=== PATIENT | female | born 1940 | race Caucasian/White ===

== ENCOUNTER → 2019-07-07 14:29 | Outpatient (BNVA) | payer MEDICARE, SELFPAY | PROVIDERS: Family Provider Family Medicine; PCP Physician Assistant Medical; Visit Provider Anesthesiology | DX: G89.29 Other chronic pain (principal); M47.816 Spondylosis without myelopathy or radiculopathy, lumbar region; M48.061 Spinal stenosis, lumbar region without neurogenic claudication; M51.37 Other intervertebral disc degeneration, lumbosacral region; M51.9 Unspecified thoracic, thoracolumbar and lumbosacral intervertebral disc disorder; M51.24 Other intervertebral disc displacement, thoracic region; M25.78 Osteophyte, vertebrae; Z79.891 Long term (current) use of opiate analgesic | CPT/HCPCS: 99214 ==

== ENCOUNTER → 2019-11-11 14:32 | Outpatient (BNVA) | payer MEDICARE, SELFPAY | PROVIDERS: Family Provider Family Medicine; PCP Physician Assistant Medical; Visit Provider Nurse Practitioner | DX: G89.29 Other chronic pain (principal); M54.5 Low back pain; Z79.891 Long term (current) use of opiate analgesic | CPT/HCPCS: 99213 ==

== ENCOUNTER → 2020-01-06 08:22 | Outpatient (BNVA) | payer MEDICARE, SELFPAY | PROVIDERS: Family Provider Family Medicine; PCP Physician Assistant Medical; Visit Provider Anesthesiology | DX: G89.29 Other chronic pain (principal); M51.24 Other intervertebral disc displacement, thoracic region; M47.816 Spondylosis without myelopathy or radiculopathy, lumbar region; M48.061 Spinal stenosis, lumbar region without neurogenic claudication; M51.37 Other intervertebral disc degeneration, lumbosacral region; M51.9 Unspecified thoracic, thoracolumbar and lumbosacral intervertebral disc disorder; M25.78 Osteophyte, vertebrae; Z79.891 Long term (current) use of opiate analgesic | CPT/HCPCS: 99214 ==

== ENCOUNTER → 2020-04-11 09:46 | Outpatient (BNVA) | payer MEDICARE, SELFPAY | PROVIDERS: Family Provider Family Medicine; PCP Physician Assistant Medical; Visit Provider Nurse Practitioner | DX: G89.29 Other chronic pain (principal); M48.061 Spinal stenosis, lumbar region without neurogenic claudication; M47.816 Spondylosis without myelopathy or radiculopathy, lumbar region; M51.9 Unspecified thoracic, thoracolumbar and lumbosacral intervertebral disc disorder; M51.37 Other intervertebral disc degeneration, lumbosacral region; Z79.891 Long term (current) use of opiate analgesic | CPT/HCPCS: 99213 ==

== ENCOUNTER → 2020-07-04 09:21 | Outpatient (BNVA) | payer MEDICARE, SELFPAY | PROVIDERS: Family Provider Family Medicine; PCP Physician Assistant Medical; Visit Provider Nurse Practitioner | DX: G89.29 Other chronic pain (principal); M48.061 Spinal stenosis, lumbar region without neurogenic claudication; M51.37 Other intervertebral disc degeneration, lumbosacral region; M47.816 Spondylosis without myelopathy or radiculopathy, lumbar region; Z79.891 Long term (current) use of opiate analgesic | CPT/HCPCS: 99212; 99213 ==

== ENCOUNTER → 2020-09-20 09:56 | Outpatient (BNVA) | payer MEDICARE, SELFPAY | PROVIDERS: Family Provider Family Medicine; PCP Physician Assistant Medical; Visit Provider Nurse Practitioner | DX: G89.29 Other chronic pain (principal); M48.061 Spinal stenosis, lumbar region without neurogenic claudication; M47.816 Spondylosis without myelopathy or radiculopathy, lumbar region; M51.37 Other intervertebral disc degeneration, lumbosacral region; M25.78 Osteophyte, vertebrae; G25.81 Restless legs syndrome; Z79.891 Long term (current) use of opiate analgesic | CPT/HCPCS: 99213 ==

== ENCOUNTER → 2020-11-16 09:51 | Outpatient (BNVA) | payer MEDICARE, SELFPAY | PROVIDERS: Family Provider Family Medicine; PCP Physician Assistant Medical; Visit Provider Nurse Practitioner | DX: G89.29 Other chronic pain (principal); M47.816 Spondylosis without myelopathy or radiculopathy, lumbar region; M51.37 Other intervertebral disc degeneration, lumbosacral region; M25.78 Osteophyte, vertebrae; M25.559 Pain in unspecified hip; M79.652 Pain in left thigh; G25.81 Restless legs syndrome; Z79.891 Long term (current) use of opiate analgesic | CPT/HCPCS: 99213 ==

== ENCOUNTER → 2021-02-02 08:47 | Outpatient (BNVA) | payer MEDICARE, SELFPAY | PROVIDERS: Family Provider Family Medicine; PCP Physician Assistant Medical; Visit Provider Anesthesiology | DX: G89.29 Other chronic pain (principal); M47.816 Spondylosis without myelopathy or radiculopathy, lumbar region; M51.37 Other intervertebral disc degeneration, lumbosacral region; M48.061 Spinal stenosis, lumbar region without neurogenic claudication; M51.24 Other intervertebral disc displacement, thoracic region; M25.78 Osteophyte, vertebrae; G25.81 Restless legs syndrome; Z79.891 Long term (current) use of opiate analgesic | CPT/HCPCS: 99213 ==

== ENCOUNTER → 2021-05-23 10:19 | Outpatient (BNVA) | payer MEDICARE, SELFPAY | PROVIDERS: Family Provider Family Medicine; PCP Nurse Practitioner Family; Visit Provider Anesthesiology | DX: G89.29 Other chronic pain (principal); M47.816 Spondylosis without myelopathy or radiculopathy, lumbar region; M51.24 Other intervertebral disc displacement, thoracic region; M48.061 Spinal stenosis, lumbar region without neurogenic claudication; M51.37 Other intervertebral disc degeneration, lumbosacral region; G25.81 Restless legs syndrome; M25.78 Osteophyte, vertebrae; Z79.891 Long term (current) use of opiate analgesic | CPT/HCPCS: 99214 ==

== ENCOUNTER 2021-06-01 06:56 | Outpatient (CLI) | payer MEDICARE, SELFPAY ==
--- NOTE | 2021-06-01 07:02 | US_ITS ---
WS: [id number] Complete ABDOMINAL ULTRASOUND HISTORY: CHEST PAIN COMPARISON: None available. Liver: 13.2 cm in length. Liver is normal size and echogenicity with no mass or intrahepatic dilatati on. Portal Vein: Normal hepatopetal flow with monophasic waveform. Gallbladder: Normally distended with no gallstones, wall thickening or pericholecystic fluid. Gallbladder wall thickness: 0.1 cm. Pancreas: Normal size and echogenicity. CBD: 0.3 cm. Right kidney: 9.6 cm x 4.1 cm x 4.5 cm. No mass, cortical thickening or hydronephrosis. Left kidney: 8.7 cm x 4.3 cm x 4.2 cm. No mass, cortical thickening or hydronephrosis. Spleen: Normal size and echogenicity. Abdominal aorta and IVC are within normal limits. No ascites. US/US abdomen complete* [id number] IMPRESSION: Normal complete abdomen ultrasound.
--- NOTE | 2021-06-01 07:04 | USCV_ITS ---
Beverly Oliva Age: 81 Gender: F : 1940 Exam Date: 06/01/2021 07:52 Ordering Phys: Ashanti Estes Technologist: [place] [facility] [place]: [place]ST [place]IN BP: 139 / 73 HR: 65 Rhythm: Sinus Technical Quality: Adequate MEASUREMENTS (Male / Female) Normal Values 2D ECHO LV Diastolic Diameter PLAX 3.2 cm 4.2 - 5.9 / 3.9 - 5.3 cm LV Systolic Diameter PLAX 1.8 cm IVS Diastolic Thickness 1.0 cm 0.6 - 1.0 / 0.6 - 0.9 cm IVS Systolic Thickness 0.9 cm LVPW Diastolic Thickness 1.1 cm 0.6 - 1.0 / 0.6 - 0.9 cm LVPW Systolic Thickness 1.1 cm LVOT Diameter 1.8 cm LV Ejection Fraction 2D Teich 71.8 % LV Ejection Fraction MOD 2C 74.8 % LV Ejection Fraction 2C AL 74.8 % LA Diameter 3.1 cm LA Width 3.7 cm LA Height 3.8 cm RA Width 3.2 cm RA Height 3.8 cm Aorta at Sinotubular Diameter 1.8 cm M-MODE Aortic Annulus Diameter 0.0 cm DOPPLER AV Peak Velocity 151.0 cm/s LVOT Peak Velocity 108.0 cm/s AV Area Cont Eq vti 1.6 cm squared AV Area Cont Eq pk 1.9 cm squared MV Area PHT 5.0 cm squared Mitral E to A Ratio 0.6 MV E' Velocity 40.0 cm/s Mitral E to MV E' Ratio 8.8 Mitral E to LV E' Lateral Ratio 9.5 Mitral E to LV E' Septal Ratio 8.3 TR Peak Velocity 154.0 cm/s TR Peak Gradient 9.5 mmHg TV Peak E Velocity 98.0 cm/s Right Atrial Pressure 3.0 mmHg Pulmonary Artery Systolic Pressu 12.5 mmHg PV Peak Velocity 80.0 cm/s RV Acceleration Time 0.2 s RV Ejection Time 0.4 s RV AcT/ET 0.5 FINDINGS Left Ventricle Normal left ventricular size and systolic function, EF 75 %. No regional wall motion abnormalities. Grade I/IV diastolic dysfunction (abnormal relaxation filling pattern), normal to mildly elevated filling pressures. Right Ventricle The right ventricle is normal in size and function. Right Atrium The right atrium is normal in size. Left Atrium The left atrium is normal in size. Mitral Valve No gross abnormalities noted Aortic Valve No gross abnormalities noted Tricuspid Valve No gross abnormalities noted Pulmonic Valve Pulmonic valve not well visualized. Pericardium Normal pericardium without effusion. Aorta Normal ascending aorta dimension. CONCLUSIONS Normal left ventricular size and systolic function, EF 75 %. No regional wall motion abnormalities. Grade I/IV diastolic dysfunction (abnormal relaxation filling pattern), normal to mildly elevated filling pressures. Normal cardiac chamber sizes. No significant stenotic or regurgitant lesions There is no pericardial effusion. There are no intracardiac masses. No previous study is available for comparison. Dr Katelyn Cortes MD FACC (Electronically Signed) Final Date: 01 June 2021 08:47 S
== END 2021-06-01 06:57 | disposition home or self-care (01) ==
LOC: RAD 06:58
PROVIDERS: PCP Nurse Practitioner Family; Visit Provider Nurse Practitioner Family
DX: R07.9 Chest pain, unspecified (principal)
CPT/HCPCS: 76700; 93306

== ENCOUNTER → 2021-12-03 12:51 | Outpatient (BNVA) | payer MEDICARE, SELFPAY | PROVIDERS: PCP Nurse Practitioner Family; Visit Provider Internal Medicine Cardiovascular Disease | DX: R07.9 Chest pain, unspecified (principal) | CPT/HCPCS: 99203; 99204 ==

== ENCOUNTER 2022-01-11 07:23 | Outpatient (CLI) | payer MEDICARE, SELFPAY ==
--- NOTE | 2022-01-11 | ECG_ITS ---
[facility] Test Date: 2022-01-11 Pat Name: Beverly Oliva Department: Room: Gender: Female Certified Nurses' Aide: : 1940 Requested By: Serenity Solis Order Number: [id number] Maira MD: Serenity Solis M.D. Interpretive Statements NAME OF STUDY: LEXISCAN SESTAMIBI STRESS TEST INDICATION: Chest Pain PROCEDURE: At the baseline, the blood pressure was 148/91 mmHg, oxygen saturation 90% with a heart rate of 75 bpm. The electrocardiogram showed normal sinus rhythm, normal axis. Poor anterior R wave progression. Nonspecific ST depression. The Lexiscan was infused over a period of 20 seconds. A total of 0.4 milligrams of Lexiscan was infused. The stress phase was continued for a total of 5 minutes. Heart rate at the end of the stress phase was 87 bpm, oxygen saturation 98% with a blood pressure of 148/80 mmHg. The EKG at the peak infusion revealed sinus rhythm with no significant ST-T wave changes. Sestamibi was injected 20 seconds after the Lexiscan infusion. Blood pressure at the end of the recovery phase was 154/85 mmHg, oxygen saturation 98% with a heart rate of 87 beats per minute. CONCLUSION: 1. No significant EKG changes with the LexiScan infusion. 2. No LexiScan induced chest pain or cardiac arrhythmia. 3. Normal blood pressure and heart rate response. 4. Sestamibi/sestamibi perfusion scan pending; see separate report. Electronically Signed On 01-14-2022 17:14:30 CDT by Serenity Solis M.D. [email or web address]
[2022-01-11 07:54] VITALS: BMI 25.7
--- NOTE | 2022-01-11 07:57 | NMCV_ITS ---
NM michelle perf SPECT r/s* [id number] Beverly Oliva Age: 81 Gender: F : 1940 Exam Date: 01/11/2022 08:49 Ordering Phys: Serenity Solis MD ([email or web address]) Technologist: VIRGEN Nunes Exam Location: [facility] Indications: CHEST PAIN STRESS TEST Please see separate stress test report in [facility] for full findings IMAGE PROTOCOL Rest/Stress 1 Lexiscan Day Radiopharmaceutical Dose (mCi) Administration Site Administered by Rest: Tc-99m 10.6 IV VIRGEN Clark Sestamibi Stress:Tc-99m 32.8 IV VIRGEN Clark Sestamibi Rest: 11-Jan-2022 60 Discovery 630 Stress: 11-Jan-2022 30 Discovery 630 0.4mg Lexiscan. Images obtained in supine and prone position. SPECT RESULTS Technical Quality: Excellent Raw Data Analysis: Normal Image Corrections: No attenuation or motion correction applied Summed Stress Score: 2 Summed Rest Score: 7 Summed Difference Score: 0 PERFUSION FINDINGS Medium sized perfusion abnormality of mid inferolateral, apical lateral, mid inferior, apical inferior and apical septal beth on rest images with improved tracer uptake in inferior and septal beth on stress images. FUNCTIONAL RESULTS (calculated via Gated SPECT) Stress Image LV EF (%): 74 Stress EDV (mL):50 TID: 1.24 Stress ESV (mL):13 FUNCTIONAL FINDINGS: NormalityThe left ventricle is normal in size. Transient Ischemia Dilatation of 1.2. There is normal left ventricular systolic function. The left ventricular ejection fraction is normal with a value of 74%. There is normal left ventricular wall thickening. IMPRESSIONS 1. Medium sized perfusion abnormality of mid inferolateral, apical lateral, mid inferior, apical inferior and apical septal beth with improved tracer uptake in inferior and septal beth. 2. This is likely suggestive of attenuation artifact in inferior and inferolateral beth. 3. Overall left ventricular systolic function is normal without regional wall motion abnormalities, LVEF=74%. 4. Transient ischemic dilation index mildly increased at 1.24. This may represent hypertensive response/subendocardial ischemia. Clinical correlation is advised. 5. EKG portion of the study will be reported separately. Serenity Solis MD (Electronically Signed) Final Date: 14 January 2022 17:27 S
[2022-01-11] MEDS: regadenoson 0.4 Mg/5 ml Syringe IVP (09:50)
[2022-01-11 10:03] VITALS: BP 154/85; PULSE 87
== END 2022-01-11 07:24 | disposition home or self-care (01) ==
LOC: CDL 07:27
PROVIDERS: PCP Nurse Practitioner Family; Visit Provider Internal Medicine Cardiovascular Disease
DX: R07.9 Chest pain, unspecified (principal)
CPT/HCPCS: 78452; 93017; A9500; J2785

== ENCOUNTER → 2022-03-04 10:59 | Outpatient (BNVA) | payer MEDICARE, SELFPAY | PROVIDERS: PCP Nurse Practitioner Family; Visit Provider Internal Medicine Cardiovascular Disease | DX: R07.9 Chest pain, unspecified (principal) | CPT/HCPCS: 99214 ==

== ENCOUNTER 2023-08-05 08:27 | Outpatient (CLI) | payer MEDICARE, SELFPAY ==
--- NOTE | 2023-08-05 08:32 | FL_ITS ---
WS: [id number] Examination: FL barium swallow [id number] Reason for Exam: CHRONIC COUGH/DYSPHAGIA/ESOPHAGEAL DILATION Date: August 05, 2023 Comparison: None. Findings: A air-contrast esophagram was performed. The esophagus is distensible and patulous in appearance. There is a moderate sliding hiatal hernia no samir. Contrast passes freely through the esophagus to the stomach. There is no evidence to suggest sig nificant distal esophageal narrowing. Impression: The esophagus is distended and patulous There is a hiatal hernia. No significant distal stricture is identified.
== END 2023-08-05 08:28 | disposition home or self-care (01) ==
LOC: RAD 08:27
PROVIDERS: PCP Nurse Practitioner Family; Visit Provider Family Medicine
DX: R05.3 Chronic cough (principal); K22.89 Other specified disease of esophagus; K44.9 Diaphragmatic hernia without obstruction or gangrene
CPT/HCPCS: 74220